=== PATIENT | male | born 1975 | race African-American/Black ===

== ENCOUNTER 2021-02-26 15:15 | Emergency (ER) | payer SELFPAY ==
[~2021-02-26] VITALS: Ht 180.3 cm; Wt 95.3 kg
--- NOTE | 2021-02-26 15:41 | NUR ---
MD@bedside, medical screening exam in progress. Patient was undressed. All clothes were removed per MD's order. Hard neck collar on & placed by MD himself.
[2021-02-26 16:11] LABS: HEMATOCRIT 22.3 % (36.7-47.1); MEAN CORPUSCULAR HEMOGLOBIN 27.6 uug (23.8-33.4); MEAN CORPUSCULAR VOLUME 80.3 fL (73.0-96.2); PLATELET COUNT (AUTO) 148 K/uL (152-348)
[2021-02-26 16:18] LABS: CARBON DIOXIDE 26 mmol/L (21-32); CHLORIDE 99 mmol/L (98-107); CREATININE 2.3 mg/dL (0.6-1.3); GLUCOSE 135 mg/dL (74-106); POTASSIUM 4.2 mmol/L (3.5-5.1); UREA NITROGEN, BLOOD 23 mg/dL (7-18)
[2021-02-26 16:22] LABS: ETHANOL < 3 MG/DL (0-0)
[2021-02-26 16:23] LABS: ALANINE AMINOTRANSFERASE 12 U/L (16-63); ALKALINE PHOSPHATASE 60 U/L (50-136); ASPARTATE AMINOTRANSFERASE 26 U/L (15-37); BILIRUBIN,DIRECT 0.1 mg/dL (0.0-0.2); BILIRUBIN,TOTAL 0.4 mg/dL (0.2-1.0); TOTAL PROTEIN, SERUM 10.4 g/dL (6.4-8.2)
[2021-02-26 16:24] LABS: ACETAMINOPHEN < 2.0 ug/mL (10-30)
[2021-02-26] MEDS ORDERED: NICARDIPINE IN NS 200 ML IV PRN (16:30)
[2021-02-26] MEDS ORDERED: NICARDIPINE IN NS 200 ML IV ONE ×3 (16:30→18:54)
--- NOTE | 2021-02-26 16:31 | NUR ---
Please see paper charting for the q 5 minutes BP checks.
--- NOTE | 2021-02-26 16:50 | NUR ---
Nicardipine drip@15mg/hour notified
[2021-02-26] MEDS ORDERED: LABETALOL HCL IV 250 MG in IV DEXTROSE 5% 200 ML IV PRN (17:15)
[2021-02-26] MEDS ORDERED: DEXTROSE 5% IV ONE (17:15)
[2021-02-26] MEDS ORDERED: LABETALOL HCL IV ONE (17:15)
[2021-02-26] MEDS: ESMOLOL 2.5 GM/NS 250 ML DRIP 250 ML IV PRN ×2 (17:20→18:30)
[2021-02-26] MEDS ORDERED: ESMOLOL 2.5 GM/NS 250 ML DRIP 250 ML IV ONE (17:21)
--- NOTE | 2021-02-26 17:44 | NUR ---
Patient's brother called & said that this patient has been complaining of headaches on & off for "months" and started vomiting for about 2 days now. And, per telephone report from patient's brother, this patient was not able to stand up and walk today and was still c/o headaches, nausea, weakness and dizziness, with history of bipolar schizophrenia, depression, hypertension and diabetes. Patient and brother can not recall any allergies or names of home medicines@this time.
[2021-02-26 18:18] LABS: ABG BASE EXCESS 1.2 mmol/L; ABG HCO3 24.9 mmol/L; ABG PCO2 35.6 mmHg (35.0-45.0); ABG PH 7.463 (7.350-7.450); ABG PO2 82.3 mmHg (75.0-100.0); ABG SITE LEFT RADIAL; ABG TOTAL HEMOGLOBIN 8.1 G/dL (13.5-18.0); COHb 1.3 % (0.5-1.5); MetHb 0.2 % (0.0-1.5); O2Hb 94.7 % (94.0-97.0); VENT MODE RA
[2021-02-26] MEDS ORDERED: FENTANYL CITRATE 100 MCG/2 ML AMPUL ONE (18:27)
[2021-02-26] MEDS ORDERED: FENTANYL CITRATE 100 MCG/2 ML AMPUL IV ONE (18:30)
[2021-02-26] MEDS ORDERED: ACETAMINOPHEN 650 MG SUPP.RECT RC ONE ×2 (19:00→19:11)
--- NOTE | 2021-02-26 19:10 | NUR ---
1850pm: Dr Jade notified re: increased body temperature 1900pm: "C-spine is clear." per Dr Jade. Patient will be tranferred to outside facility: [facility] Physician:Dorie [facility] [address] [facility] income tax expert: Shirley accepted hands off report 6U nurse : Colin accepted telephone report@[phone]
[2021-02-26 19:13] VITALS: BP 144/83
--- NOTE | 2021-02-26 19:13 | NUR ---
IV drips Nicardipine & IV Esmolol were still infusing enroute to [facility]. Hands off given to LAVELL Watson accordingly.
== END 2021-02-26 19:13 | disposition short-term general hospital (02) ==
LOC: ER 15:15
DX: I61.5 Nontraumatic intracerebral hemorrhage, intraventricular (principal); G93.6 Cerebral edema; G91.8 Other hydrocephalus; N28.9 Disorder of kidney and ureter, unspecified; F31.9 Bipolar disorder, unspecified; E11.9 Type 2 diabetes mellitus without complications; R94.31 Abnormal electrocardiogram [ECG] [EKG]; Z20.822 Contact with and (suspected) exposure to COVID-19
CPT/HCPCS: 36415; 36600; 70450; 71045; 72125; 80048; 80076; 80299; 80320; 82140; 82962; 83605; 84484; 85025; 85730; 86850; 86900; 86901; 87040 ×2; 87426; 93005; 96365 ×2; 96366 ×2; 96368; 99291; J3010; J3490; 70030-TC; A4663; G0480; J7030; J7060